=== PATIENT | female | born 1980 | race Caucasian/White ===

== ENCOUNTER 2022-07-17 07:37 | Emergency (ER) | payer OTHER, SELFPAY ==
[2022-07-17 07:40] VITALS: PULSE 80; RESP 18; TEMP 36.9; O2SAT 97
--- NOTE | 2022-07-17 08:06 | ED.GENADUL_ITS ---
Discharge Plan Disposition Patient Disposition: Home Condition: Stable Discharge Details Clinical Impression: Acute left otitis media Primary Care Provider: Bina Bedoya ED Provider: Nisha Ellis Home Meds and New Rx's Prescriptions: New amoxicillin-pot clavulanate 875-125 mg tablet 1 tab PO BID 10 Days Qty: 20 0RF No Action acetaminophen [Tylenol] 325 mg Tablet 650 mg PO Q4H PRN methylphenidate HCl [Ritalin] 10 mg Tablet 25 mg PO QAM sertraline 50 mg Tablet 50 mg PO DAILY Discharge Instructions Instructions: Ear Infection (ED) Additional Instructions: Please take the antibiotic as prescribed. Take it with yogurt or probiotic. Follow up with primary care provider in 3-5 days. Return to ED sooner if any worsening or concerns. Increase oral fluids. Please take Tylenol or Ibuprofen with food every 4-6 hours as needed for pain and swelling. Referrals: Bina Bedoya [Primary Care Provider] - 1 week Medical Decision Making Patient given Ibuprofen and augmentin. Sign Out No HPI General Mode of arrival: ambulatory . Date/Time Provider Initiated Documentation: 07/17/22 07:51 . Limitations to Documentation: no limitations . Information obtained by: patient, RN notes reviewed and old records reviewed . HPI Narrative: 42-year-old female presents to the ER with a chief complaint of left ear pain she reported dizziness and nausea which began 2 days ago and left ear pain which began last night. She denies any other acute symptoms no sore throat no cough no fever no chills. She did have 2 negative COVID test prior to arrival. No significant past medical history. Related Data Home Medications Medication Instructions Recorded Confirmed acetaminophen 325 mg tablet 650 mg PO Q4H PRN 07/17/22 07/17/22 (Tylenol) amoxicillin 875 mg-potassium 1 tab PO BID 10 days #20 tabs 07/17/22 clavulanate 125 mg tablet methylphenidate HCl 10 mg tablet 25 mg PO QAM 07/17/22 07/17/22 (Ritalin) sertraline 50 mg tablet 50 mg PO DAILY 07/17/22 07/17/22 Previous Rx's Medication Instructions Recorded amoxicillin 875 mg-potassium 1 tab PO BID 10 days #20 tabs 07/17/22 clavulanate 125 mg tablet Allergies Allergy/AdvReac Type Severity Reaction Status Date / Time cat dander Allergy Unverified 07/17/22 07:46 Sulfa (Sulfonamide Allergy Unverified 07/17/22 07:46 Antibiotics) General Stated Complaint: EarProblem GLORAI: 4 Review of Systems All systems reviewed & are unremarkable except as noted in HPI and below ENT Ears, Nose, Mouth, and Throat: Reports as per HPI, Reports dizziness, Reports otalgia, Reports sinus pain, Reports sinus pressure and Denies sore throat Cardiovascular Cardiovascular: Denies chest pain and Denies dyspnea Respiratory Respiratory: Denies cough and Denies dyspnea Neurologic Neurologic: Reports dizziness PFSH All Active Problems (Updated 07/17/22 @ 08:10 by Nisha Ellis NP) Acute left otitis media (Acute) Social History Smoking/Tobacco Use Status: Never Smoking risk assessment performed?: Yes Alcohol Intake: current Alcohol Intake frequency: a few times a month Alcohol type: wine Drug use: Never Substance use type: does not use Do you feel safe at home: Yes Do you feel safe in your relationship?: Yes Exam HENMT Ears: external ears normal, TM normal on the right and TM abnormal (left) erythematous on the left General nose exam: external nose normal and nares normal Face and sinus: sinus tenderness Teeth and gingiva: dentition normal Course Vital Signs Vital signs: Vital Signs Temperature 36.9 C 07/17/22 07:40 Pulse 80 07/17/22 07:40 Respiratory Rate 18 07/17/22 07:40 Pulse Oximetry 97 07/17/22 07:40 Temperature 36.9 C 07/17/22 07:40 Temperature Source Temporal Artery Scan 07/17/22 07:40 Pulse 80 07/17/22 07:40 Respiratory Rate 18 07/17/22 07:40 Respiratory Effort Non-Labored 07/17/22 07:43 Blood Pressure Position Sitting 07/17/22 07:40 Pulse Oximetry 97 07/17/22 07:40 Oxygen Delivery Method Room Air 07/17/22 07:40 Oxygen Flow Rate 0 07/17/22 07:40 Pain Level 9 07/17/22 07:40 PAWSS Have you Been Recently Intoxicated or Drunk Within the Last 30 days?: No Have you Ever Experienced Previous Episodes of Alcohol Withdrawal?: No Have you ever Experienced Withdrawal Seizures?: No Have you ever Experienced Delirium Tremens(DT)s?: No Have you ever undergone Alcohol Rehabilitation Treatment (i.e, inpt ot outpatient treatment programs)?: No Have you ever Experienced Blackouts?: No Have you ever Combined Alcohol with other Downers within the last 90 days?: No Have you ever Combined Alcohol with any other Substance of Abuse during the last 90 days?: No Positive Blood Alcohol level on Presentation? [PCS.BAL]: No Evidence of Increased Autonomic Activity (i.e. HR>120, tremor, sweating, agitation, nausea)?: No Result: 0
[2022-07-17] MEDS: Amox. 875/Clav. 125, 2 TABS/BTL 1 TAB PO (08:12)
[2022-07-17] MEDS: Ibuprofen 600 MG TAB PO (08:13)
[2022-07-17] MEDS: Amoxicillin 875/Clav. 125 TAB PO (08:13)
== END 2022-07-17 08:22 | disposition home or self-care (01) ==
PROVIDERS: Emergency Provider Registered Nurse Emergency; PCP Nurse Practitioner
DX: H66.92 Otitis media, unspecified, left ear (principal)
CPT/HCPCS: 99283

== ENCOUNTER 2023-06-04 08:02 | Emergency (ER) | payer SELFPAY ==
[2023-06-04 08:40] VITALS: BP 160/142; PULSE 82; RESP 15; TEMP 36.8; O2SAT 99
[2023-06-04 09:22] VITALS: RESP 24
[2023-06-04] MEDS: LORazepam 1 MG TAB PO (09:22)
--- NOTE | 2023-06-04 12:40 | W.ED.GENAD ---
Discharge Plan Disposition Patient Disposition: Eloped Discharge Details Clinical Impression: Mood disorder Primary Care Provider: Bina Bedoya ED Provider: Aurelia Keating Home Meds and New Rx's Prescriptions: Continued acetaminophen [Tylenol] 325 mg Tablet 650 mg PO Q4H PRN methylphenidate HCl [Ritalin] 10 mg Tablet 25 mg PO QAM Hold Instructions: does not take during summer sertraline 50 mg Tablet 50 mg PO DAILY Discharge Data Discharge Date/Time-TO BE ENTERED AT DEPARTURE: 06/04/23 13:13 Medical Decision Making On exam patient is alert and oriented, she is tearful on assessment Cranial nerves II through XII intact, ambulatory with steady gait, denies specific plan to harm self denies homicidal ideation auditory visual hallucinations States she struggled with this for a while, never asked for help in the past with her provider as a friend and she knows several people at [facility] and likes to keep her life private This is she states that she feels an overall length sense of panic and is unsure what to do Patient was given a milligram of Ativan on reassessment is resting comfortably and using a medication out NKA chest, ribs presents to assess patient is recommending care bed for patient, voluntary status Patient is requesting to leave that she would be private pay and does not feel she can afford care bed I again reviewed situation with Pratima and we agreed the patient will remain voluntary, patient eloped prior to discharge paperwork, she is alert and oriented HPI General Date/Time Provider Initiated Documentation: 06/04/23 08:37. HPI Narrative: 43-year-old female presenting with anxiety since 2 AM, panic attacks, states she struggles with anxiety and depression has been taking her medications as prescribed. Today she states she dropped a school and had to pull her vehicle over because she was feeling a constant sense with panic. Denies chest pain or shortness of breath. Denies fever or chills. Denies any chance of . Denies any attempts to harm self or current suicidal ideation. Related Data Home Medications Medication Instructions Recorded Confirmed acetaminophen 325 mg tablet 650 mg PO Q4H PRN 07/17/22 06/04/23 (Tylenol) methylphenidate HCl 10 mg tablet 25 mg PO QAM 07/17/22 06/04/23 (Ritalin) sertraline 50 mg tablet 50 mg PO DAILY 07/17/22 06/04/23 Allergies Allergy/AdvReac Type Severity Reaction Status Date / Time cat dander Allergy Unverified 07/17/22 07:46 Sulfa (Sulfonamide Allergy Unverified 07/17/22 07:46 Antibiotics) General Stated Complaint: Anxiety GLORIA: 3 PFSH All Active Problems (Updated 06/06/23 @ 08:15 by PAUL Dietrich) Mood disorder (Acute) Social History Smoking/Tobacco Use Status: Never Smoking risk assessment performed?: Yes Alcohol Intake: current Alcohol Intake frequency: a few times a month Alcohol type: wine Drug use: Never Substance use type: does not use Do you feel safe at home: Yes Do you feel safe in your relationship?: Yes Course Vital Signs Vital signs: Vital Signs Temperature 36.8 C 06/04/23 08:40 Pulse 82 06/04/23 08:40 Respiratory Rate 15 06/04/23 08:40 Blood Pressure 160/142 H 06/04/23 08:40 Pulse Oximetry 99 06/04/23 08:40 Temperature 36.8 C 06/04/23 08:40 Temperature Source Oral 06/04/23 08:40 Pulse 82 06/04/23 08:40 Respiratory Rate 24 06/04/23 09:22 Respiratory Effort Normal 06/04/23 09:22 Respiratory Depth Normal 06/04/23 09:22 Respiratory Pattern Normal 06/04/23 09:22 Blood Pressure 160/142 H 06/04/23 08:40 Blood Pressure Position Sitting 06/04/23 08:40 Pulse Oximetry 99 06/04/23 08:40 Oxygen Delivery Method Room Air 06/04/23 08:40 Oxygen Flow Rate 0 06/04/23 08:40 Pain Level 0 06/04/23 08:40
--- NOTE | 2023-06-05 12:33 | PDOC.MHCN_ITS ---
Date of service: 06/04/23 Time of Service: 12:33 PHQ-9 Over the last 2 weeks, how often have you been bothered by any of the following problems? 1. Little interest or pleasure in doing things: nearly every day 2. Feeling down, depressed, or hopeless: nearly every day 3. Trouble falling or staying asleep, or sleeping too much: more than half the days 4. Feeling tired or having little energy: nearly every day 5. Poor appetite or overeating: more than half the days 6. Feeling bad about yourself - or that you are a failure or have let yourself and your family down: nearly every day 7. Trouble concentrating on things, such as reading the newspaper or watching television: several days 8. Moving or speaking so slowly that other people could have noticed? - Or the opposite - being so fidgety or restless that you have been moving around a lot more than usual: not at all 9. Thoughts that you would be better off or of hurting yourself in some way: several days Total score: 18 If you checked off any problems, how difficult have these problems made it for you to do your work, take care of things at home, or get along with other people?: extremely difficult PHQ-9 Results: Positive Source: Developed by Drs. Alexandro Tong, Consuelo Hoyos, Ricky Hathaway and colleagues, with an educational kam from [employer] Suicide Severity Rate CSSRS Have you wished you were or wished you could go to sleep and not wake up?: Yes Have you actually had any thoughts of killing yourself?: Yes CSSRS2 Have you been thinking about how you might do this?: Yes Have you had these thoughts and had some intention of acting on them?: Yes Have you started to work out or worked out the details of how to kill yourself? Do you intend to carry out this plan?: No CSSRS3 Have you ever done anything, started to do anything or prepared to do anything to end your life?: Yes CSSRS4 Was this within the past three months?: No Screening Score Total Score: 6 Screening: Positive Mental Health Emergency Note Release [facility] release signed:: Yes Reason for Visit The client presented to [facility] on 06.04.23 seeking help as she has been struggling with her symptoms relating to her diagnosis of SI and HI. The hospital is seeking an evaluation to address needs. In the last 2 weeks has the pt presented for ES prior to today?: No Client Information Client is: New Well Housed: Yes Non Suicidal Self Injury Current: No History: No Safety Risk/Harm to Self or Others Current Ideation to Harm Self or Others: Yes to self. Intent: no, has no intent. Plan: yes,has a plan. History of suicide attempt: yes,history of suicide attempt reported. Details of previous suicide attempt: Not discussed. Risk: Does risk to harm exist?: yes. Access to means: Yes. Types of Means: Medication. Counseling provided: Yes Risk: High Risk Duty to warn indicated: No Asssessment/Mental Status Appearance: Well groomed Attitude: Cooperative and Hostile Behavior: Unremarkable and Agitated Speech: Normal Affect: Normal and Cogruent with mood Mood: Depressed, Anxious and Irritable Thought process: Goal directed Hallucinations: yes, ( The client reported that she has experienced visual hallucinations after the of her step-father 7 years ago. It was not clear if she still experiences these or not. ) Visual Delusions: No Attention: Unremarkable Perception: Not impaired Orientation: Fully orientated Memory: Intact Insight: Good Judgement: Poor Neurovegetative Symptoms Sleep: Decrease Appetitie: Decrease Interests: Decrease Energy: Decrease Libido: Not applicable Substance Use: Do you use nicotine?: No Have you used substances in the last 7 days?: No Additional Issues: Assaultive/Threatening Behavior: No Medical Concerns: No Client engaged in active self harm w/weapon: No Threatening to run away: Yes Child reported abuse/neglect: No Voluntarily presenting for services: No Domestic violence is a concern: No Extreme Psychosis or extreme behavior is present: Yes Impression During the assessment the client disclosed to this clinician that she has thought of a plan to end her life via suicide and that is to ?overdose on Z- quill.? She reported that she would get a hotel and overdose there. She denied that she would use her prescribed medications because she would not want to get her prescriber in any kind of trouble. The client stated that she has dealt with anxiety and depression her whole life and that when she is stressed and busy she can manage it. Now that she is home alone a lot she has more time to think and as a result she has become more and more depressed and anxious. It is important to note that the client initially was denying SI but as the assessment went on she disclosed the above plan. She reported that last week she woke up around 2 am and impulsively drove to the [employer] and had brought her credit card to ?rent a hotel and .? The client has endorsed a decrease in sleep, appetite, interests and energy. She endorsed feelings of hopelessness. The client stated that she likely will not follow through with any of the other suggestions made like a crisis bed later this week, and psychiatry ?this was a one-time only thing.? The client shared that she has struggled with depression and anxiety for most of her life and had been able to avoid her symptoms when she as stressed and busy at her other employer. Now that she is home she is able to think more and is alone a lot which has increased the severity of these symptoms. Resources Reosurces reviewed and given:: Crisis Bed Plan/Disposition Recommended Disposition: Crisis bed, facility contacted. Status of Crisis Bed acceptance: Not accepted, no bed availabiltiy. Plan: The client eloped from the hospital and there was enough concern that this clinician attempted an EE with the provider. We later learned that the client was at [facility]. Person reported agreement to plan: No Reports/communication Outcome discussed with: ED/Personnel
== END 2023-06-04 13:13 | disposition left against medical advice (07) ==
LOC: ER 09:38
PROVIDERS: Emergency Provider Physician Assistant; PCP Nurse Practitioner
DX: F41.9 Anxiety disorder, unspecified (principal); F32.A Depression, unspecified; Z53.29 Procedure and treatment not carried out because of patient's decision for other reasons
CPT/HCPCS: 87635; 96127; 99283